=== PATIENT | male | born 1970 | race Caucasian/White ===

== ENCOUNTER 2023-12-18 22:36 | Inpatient (IN) | payer OTHER, SELFPAY ==
[2023-12-18] VITALS (11 sets, daily range): BP systolic 161–213; BP diastolic 105–124; PULSE 134–156; RESP 16–35; TEMP 36.8; O2SAT 96–98; BMI 32.6
--- NOTE | 2023-12-18 22:39 | ECG_ITS ---
[facility] Test Date: 2023-12-18 Pat Name: Mika Salas Department: Room: Gender: Male Regulatory Internship: : 1970 Requested By: Inge Ghosh Order Number: [id number] Sachi MD: Mansi Alston M.D. Measurements Intervals [place] Rate: 152 P: 0 DC: 0 QRS: 64 QRSD: 79 T: -34 QT: 267 QTc: 425 Interpretive Statements ATRIAL FLUTTER/TACHYCARDIA WITH RAPID VENTRICULAR RESPONSE NONSPECIFIC ST & T-WAVE ABNORMALITY CRITICAL TEST RESULT No previous ECG available for comparison Electronically Signed On 12-19-2023 23:29:26 CDT by Mansi Alston M.D. [id number]
--- NOTE | 2023-12-18 22:43 | XRR_ITS ---
PROCEDURE INFORMATION: Exam: XR Chest Exam date and time: 12/18/2023 10:55 PM Age: 53 years old Clinical indication: Patient HX: Chest pain; New onset afib/rvr TECHNIQUE: Imaging protocol: Radiologic exam of the chest. Views: 1 view. COMPARISON: No relevant prior studies available. FINDINGS: Lungs: Unremarkable. No consolidation. Pleural spaces: Unremarkable. No pleural effusion. No pneumothorax. Heart/Mediastinum: Cardiomegaly. Bones/joints: Unremarkable. XR/XR chest 1V portable [id number] IMPRESSION: Cardiomegaly, negative for infiltrates
--- NOTE | 2023-12-18 22:53 | ED_ITS ---
HPI - Arrhythmia/Palpitations 2 General: Chief Complaint: Arrhythmia/Palpitations Stated Complaint: CP, Rapid heart Beat Time Seen by Provider: 12/18/23 22:54 History of Present Illness: 53-year-old male patient comes in today for complaints of rapid heart rate starting about 930 this evening. Patient was said he was just standing there and started feeling his heart not away with itself. Patient came in to the ER then when it did not slow down. Patient reported some mild chest pressure. Patient denies any chronic medical problems. Patient does drink alcohol and chews tobacco. Patient's surgical history includes repair of a fractured right leg and repair of a fractured right hand. Related Data Allergies Allergy/AdvReac Type Severity Reaction Status Date / Time No Known Allergies Allergy Verified 12/18/23 22:47 Review of Systems 2 General: Reports: 10 or more systems reviewed and unremarkable except in HPI and below Card: Reports: palpitations Physical Exam 2 Const: COMMON NORMALS: alert HENMT: COMMON NORMALS: normocephalic HEAD & SCALP: normocephalic THROAT: posterior oropharynx normal Neck/C-Spine: COMMON NORMALS: full ROM Chest: COMMONS NORMALS: normal inspection of the chest Resp: COMMON NORMALS: normal respiratory effort and clear to auscultation bilaterally AUSCULTATION: clear to auscultation bilaterally Cardio: COMMON NORMALS: regular rhythm RATE: tachycardic RHYTHM: regular rhythm GI: COMMON NORMALS: Soft to palpation and non-tender PALPATION: Yes Soft to palpation Back/Pelvis: COMMON NORMALS: thoracic and lumbar spine normal to inspection Extremity: COMMON NORMALS: normal to inspection Neuro: SENSORIUM/ORIENTATION: Yes alert Skin: COMMON NORMALS: turgor normal GENERAL SKIN EXAM: turgor normal Course 2 Vital Signs: Vital signs: Vital Signs Temperature 98.3 F 12/18/23 22:44 Pulse Rate 152 H 12/18/23 23:02 Respiratory Rate 22 H 12/18/23 23:02 Blood Pressure 170/114 12/18/23 23:02 Pulse Oximetry 98 12/18/23 23:02 MDM - Arrhythmia/Palpitations Medical Decision Making 53-year-old male patient comes in today with onset of palpitations and rapid heart rate about 930 this evening. Patient reported no improvement of symptoms and prompted him to come to the ER. Patient reported some mild chest discomfort. Differential diagnosis includes ACS, atrial fibrillation with RVR, dehydration, electrolyte imbalance, CHF. Initial EKG noted atrial flutter/tachycardia with rapid ventricular response at 152 bpm. 2257, reviewed EKG with Dr. Ghosh who initiated a Cardizem bolus 20 mg followed by drip. 2338, no response from initial dosing, repeat cardizem 20mg, D-Dimer elevated CTA of chest ordered. 0030, CTA of the chest noted no pulmonary embolism but does note cirrhosis of the liver and enlarged spleen. Chest x-ray showed cardiomegaly with negative for infiltrates. Discussed patient with Dr. Livingston who accepted patient graciously for admission for further management of atrial flutter with rapid response. Lab Data 12/18/23 22:58 12/18/23 22:58 Radiology Impressions Chest X-Ray 12/18/23 22:43 IMPRESSION: Cardiomegaly, negative for infiltrates Chest CTA 12/18/23 23:38 IMPRESSION: 1. Negative for pulmonary embolus. 2. Cardiomegaly. 3. Coronary artery atherosclerotic calcifications. 4. Spleen enlarged to 15 cm. 5. Hepatic steatosis. 6. Cirrhotic liver. Laboratory Results WBC 4.64 10^3/uL (3.29-11.43) 12/18/23 22:58 RBC 5.32 10^6/uL (3.85-5.65) 12/18/23 22:58 Hgb 16.60 g/dL (11.27-16.99) 12/18/23 22:58 Hct 47.5 % (37-53) 12/18/23 22:58 MCV 89.3 fl (82-101) 12/18/23 22:58 MCH 31.2 pg (27-33) 12/18/23 22:58 MCHC 34.9 g/dL (30-55) 12/18/23 22:58 RDW 13.1 % (12.1-15.1) 12/18/23 22:58 Plt Count 151 10^3/cmm (157-399) L 12/18/23 22:58 MPV 9.2 fL (7.4-10.4) 12/18/23 22:58 Neut % (Auto) 42.7 % 12/18/23 22:58 Lymph % (Auto) 43.8 % 12/18/23 22:58 [place] % (Auto) 11.0 % 12/18/23 22:58 Eos % (Auto) 1.7 % 12/18/23 22:58 Baso % (Auto) 0.6 % 12/18/23 22:58 Neut # (Auto) 1.98 10^3/uL (1.8-7.7) 12/18/23 22:58 Lymph # (Auto) 2.0 10^3/uL (0.8-4.8) 12/18/23 22:58 [place] # (Auto) 0.5 10^3/uL (0.2-0.9) 12/18/23 22:58 Eos # (Auto) 0.1 10^3/uL (0.0-0.8) 12/18/23 22:58 Baso # (Auto) 0.0 10^3/uL (0.0-0.1) 12/18/23 22:58 Nucleated RBC % (auto) 0 % 12/18/23 22:58 Nucleated RBCs # 0.0 /100WBC 12/18/23 22:58 PT 14.00 SECONDS (12.1-14.9) 12/18/23 22:58 INR 1.05 (0.8-1.2) 12/18/23 22:58 APTT 36.0 SECONDS (23.9-36.7) 12/18/23 22:58 D-Dimer 14.86 ug/mLFEU (0-0.59) H 12/18/23 22:58 Sodium 137 mmol/L (136-145) 12/18/23 22:58 Potassium 4.0 mmol/L (3.5-5.1) 12/18/23 22:58 Chloride 101 mmol/L (98-107) 12/18/23 22:58 Carbon Dioxide 25 mmol/L (22-29) 12/18/23 22:58 Anion Gap 15.0 (5-19) 12/18/23 22:58 BUN 10 mg/dL (6-20) 12/18/23 22:58 Creatinine 0.9 mg/dL (0.7-1.2) 12/18/23 22:58 GFR Calculation 88.3 mL/min (90-130) L 12/18/23 22:58 Glucose 118 mg/dL (65-115) H 12/18/23 22:58 Calculated Osmolality 284 mOsm/kg (285-295) L 12/18/23 22:58 Calcium 8.6 mg/dL (8.5-10.5) 12/18/23 22:58 Magnesium 1.9 mg/dL (1.7-2.3) 12/18/23 22:58 Total Bilirubin 1.0 mg/dL (0.15-1.2) 12/18/23 22:58 AST 98 U/L (0-40) H 12/18/23 22:58 ALT 133 U/L (0-41) H 12/18/23 22:58 Alkaline Phosphatase 159 U/L (40-130) H 12/18/23 22:58 Troponin T Baseline 14 ng/L (0-15) 12/18/23 22:58 NT-Pro-B Natriuret Pep 116 pg/mL (0-125) 12/18/23 22:58 Total Protein 7.9 g/dL (6.6-8.7) 12/18/23 22:58 Albumin 3.9 g/dL (3.5-5.2) 12/18/23 22:58 Globulin 4.0 g/dL (1.3-4.6) 12/18/23 22:58 Lipase 27 U/L (13-60) 12/18/23 22:58 All radiology interpretation(s) finalized by discharge EKG Data EKG 1: I personally reviewed and interpreted this EKG as follows: EKG interpretation date: 12/18/23 EKG interpretation time: 22:57 Prior EKG tracings: not available for review Interpretation: EKG shows a atrial tachycardia with rapid ventricular response at [address] elevation or ectopy is seen on rhythm. No prior exam was available for comparison. Computer generated interpretation: Atrial flutter/tachycardia with rapid ventricular response. Nonspecific ST and T wave abnormality. Critical test result. Unconfirmed report. Other EKG comments: Chest X-Ray 12/18/23 22:43 IMPRESSION: Cardiomegaly, negative for infiltrates Chest CTA 12/18/23 23:38 IMPRESSION: 1. Negative for pulmonary embolus. 2. Cardiomegaly. 3. Coronary artery atherosclerotic calcifications. 4. Spleen enlarged to 15 cm. 5. Hepatic steatosis. 6. Cirrhotic liver. Discharge Plan Discharge Condition: Stable Referrals: Jevon Hodges MD [Family Provider] - Coding Level of Care Code ED Custom Protection Officer for Nurys Pittman
[2023-12-18] MEDS: dilTIAZem 5 mg/mL SDV 5 mL 20 MG IVP ×2 (23:04→23:42)
[2023-12-18] MEDS: aspirin 81 mg Chew Tablet 162 MG PO (23:04)
[2023-12-18 23:12] LABS: Basophils % 0.6 %; Eosinophils # 0.1 10^3/uL (0.0-0.8); Eosinophils % 1.7 %; Hematocrit 47.5 % (37-53); Lymphocytes % 43.8 %; Mean Corpuscular HGB Conc 34.9 g/dL (30-55); Mean Corpuscular Hemoglobin 31.2 pg (27-33); Mean Corpuscular Volume 89.3 fl (82-101); Mean Platelet Volume 9.2 fL (7.4-10.4); Monocytes # 0.5 10^3/uL (0.2-0.9); Neutrophils # 1.98 10^3/uL (1.8-7.7); Neutrophils % 42.7 %; Nucleated Red Blood Cells % 0 %; Platelet Count 151 10^3/cmm (157-399); Red Blood Count 5.32 10^6/uL (3.85-5.65); Red Cell Distribution Width 13.1 % (12.1-15.1); White Blood Count 4.64 10^3/uL (3.29-11.43)
[2023-12-18] MEDS: dilTIAZem 100 MG in sodium chloride 0.9% (add-van) 100 ML IV (23:13)
[2023-12-18 23:28] LABS: Troponin(5th) Baseline 14 ng/L (0-15)
[2023-12-18 23:30] LABS: D Dimer 14.86 ug/mLFEU (0-0.59)
[2023-12-18 23:37] LABS: Alanine Aminotransferase 133 U/L (0-41); Albumin Level 3.9 g/dL (3.5-5.2); Alkaline Phosphatase 159 U/L (40-130); Aspartate Amino Transferase 98 U/L (0-40); Blood Urea Nitrogen 10 mg/dL (6-20); Calcium 8.6 mg/dL (8.5-10.5); Carbon Dioxide 25 mmol/L (22-29); Chloride 101 mmol/L (98-107); Creatinine Clr Calc Pharmacy 107.4729; Glomerular Filtration Rate 88.3 mL/min (90-130); Glucose 118 mg/dL (65-115); Lipase 27 U/L (13-60); NT Pro B Type Natriuretic Pept 116 pg/mL (0-125); Osmolality Calculated 284 mOsm/kg (285-295); Sodium 137 mmol/L (136-145); Total Protein 7.9 g/dL (6.6-8.7)
--- NOTE | 2023-12-18 23:38 | CTR_ITS ---
PROCEDURE INFORMATION: Exam: CTA Chest With Contrast Exam date and time: 12/19/2023 12:00 AM Age: 53 years old Clinical indication: Abnormal findings; Abnormal diagnostic tests; Elevated d-dimer; Other: Palpitations/afib; Patient HX: C/O palpitations. Afib rvr on monitor. D dimer of 14.86. ; Additional info: Elevated d-dimer; New onset a-fib/rvr TECHNIQUE: Imaging protocol: Computed tomographic angiography of the chest with contrast. Exam focused on the arteries. 3D rendering (Not supervised by radiologist): MIP and/or 3D reconstructed images were created by the technologist. Radiation optimization: All CT scans at this facility use at least one of these dose optimization techniques: automated exposure control; mA and/or kV adjustment per patient size (includes targeted exams where dose is matched to clinical indication); or iterative reconstruction. Contrast material: OMNI 350; Contrast volume: 57 ml; Contrast route: INTRAVENOUS (IV); COMPARISON: CR (CHEST, ) 12/18/2023 10:55 PM RADIATION DOSE METRICS: Total DLP (mGy-cm): 440 FINDINGS: Pulmonary arteries: Normal. No pulmonary emboli. Aorta: Unremarkable. No aortic aneurysm. No aortic dissection. Lungs: Unremarkable. No consolidation. No masses. Pleural spaces: Unremarkable. No pneumothorax. No pleural effusion. Heart: Cardiomegaly. Coronary arteries: Coronary artery atherosclerotic calcifications. Lymph nodes: Unremarkable. No enlarged lymph nodes. Liver: Hepatic steatosis. Cirrhotic liver. Spleen: Spleen enlarged to 15 cm. Bones/joints: Unremarkable. No acute fracture. Soft tissues: Unremarkable. CT/CT angio chest PE protcl [id number] IMPRESSION: 1. Negative for pulmonary embolus. 2. Cardiomegaly. 3. Coronary artery atherosclerotic calcifications. 4. Spleen enlarged to 15 cm. 5. Hepatic steatosis. 6. Cirrhotic liver.
[2023-12-18 23:51] LABS: INR 1.05 (0.8-1.2)
[2023-12-19] VITALS (38 sets, daily range): BP systolic 118–164; BP diastolic 74–108; PULSE 55–160; RESP 17–34; TEMP 36.6–36.8; O2SAT 90–99
[2023-12-19] MEDS: iohexol 350 mg/mL 500 mL Btl (per mL) IV (00:02)
[2023-12-19 00:10] LABS: Magnesium 1.9 mg/dL (1.7-2.3)
[2023-12-19 00:39] LABS: Alcohol Level < 10 mg/dL (0-10)
[2023-12-19 01:32] LABS: Troponin 5 2HR 11.33 ng/L (0-15)
[2023-12-19 01:36] LABS: Troponin 5 2HR Delta -2.67 ABS# (0-10)
--- NOTE | 2023-12-19 02:08 | P.HP_ITS ---
Providers/Chief Complaint 2 Admitting Physician: Everett Livingston Chief Complaint: CP, Rapid heart Beat History of Present Illness Pleasant 53-year-old gentleman started experiencing palpitations in the evening on 12/17 around 9 PM, finding that his heart rate was rapid. He came to the ER for assessment. He denies any lightheadedness, chest pain pressure or trouble breathing. He has not been ill recently. He states that he threw out his back last week for which he took some pain medications. Denies other new medicines. He denies any past medical history. No history of thyroid issues. He consumes about 15 bottles of beer in a week. He does not have a PCP. In ER his heart rate is found to be in 150s. Baseline troponin is normal. Potassium 4. Magnesium 1.9. He is hypertensive, blood pressure as high as 213/124 on presentation. With Cardizem drip down as low as 118/83. Currently 158/103. Review of Systems 2 Const: Denies: fever(s), chills, body aches or malaise ENMT: Denies: throat pain Card: Denies: chest pain, edema, pre-syncope or dyspnea on exertion Resp: Denies: dyspnea, productive cough, change in phlegm color or hemoptysis GI: Denies: abdominal pain, nausea, vomiting, diarrhea, constipation, hematochezia or melena : Denies: flank pain, difficulty urinating, urinary frequency or hematuria Musc: Denies: back pain, joint swelling or joint redness Neuro: Denies: headache(s), dizziness or confusion Medications/Allergies Allergies Allergy/AdvReac Type Severity Reaction Status Date / Time contact metal agent Allergy Intermediate ALGY-Redness Unverified 12/19/23 02:14 of Skin PFSH Acute 2 PFSH: Social History (Updated 12/19/23 @ 02:13 by Everett Livingston MD) Smoking and tobacco/nicotine status: never used tobacco/nicotine Alcohol intake: current Alcohol type: beer Alcohol use comment: 15/wk Lives independently: Yes Household members: spouse Marital status: Vitals/I&O/Wt Last Vital Signs Temp 98.3 F 12/18/23 22:44 Pulse 159 H 12/19/23 01:50 Resp 31 H 09/23/24 01:50 BP 158/103 12/19/23 01:50 Pulse Ox 97 12/19/23 01:50 12/18/23 12/18/23 12/19/23 14:59 22:59 06:59 Intake Total 7.583 / 7.583 Balance 7.583 / 7.583 Weight last 48 hrs Weight 97.522 kg Physical Exam 2 Const: COMMON NORMALS: patient oriented x3 and alert GENERAL APPEARANCE: c ooperative ORIENTATION/CONSCIOUSNESS: Yes awake HENMT: COMMON NORMALS: oropharynx normal Neck/C-Spine: COMMON NORMALS: no JVD Resp: COMMON NORMALS: normal respiratory effort and clear to auscultation bilaterally AUSCULTATION: clear to auscultation bilaterally Cardio: COMMON NORMALS: no JVD, regular rhythm, S1 normal heart sound present, S2 normal heart sound present and No murmurs present (Cardio) RHYTHM: regular rhythm HEART SOUNDS: S1 normal heart sound present and S2 normal heart sound present GI: COMMON NORMALS: Normal to inspection, nondistended, normoactive bowel sounds present, Soft to palpation and non-tender PALPATION: Yes Soft to palpation Extremity: COMMON NORMALS: no joint enlargement and no pedal edema Neuro: COMMON NORMALS: patient oriented x3 and moves all extremities S ENSORIUM/ORIENTATION: Yes alert Skin: COMMON NORMALS: no rashes or lesions noted GENERAL SKIN EXAM: no rashes or lesions noted Data 12/18/23 22:58 12/18/23 22:58 A&P Assessment and plan (1) Paroxysmal atrial fibrillation with RVR: Reviewed vitals, CBC, coagulation studies, D-dimer, CMP, magnesium, troponin, NT proBNP, lipase, EtOH level, EKG, chest x-ray, CTA ER provider note, discussed with ER provider. Heart rate remains in the 50s, has been started on Cardizem drip, blood pressure extremely elevated on presentation, as high as 213/124, currently 158/103. No response on heart rate to Cardizem drip. Reviewed EKG, on my interpretation atrial flutter, noted T wave inversion in 2, 3 and aVF will give 2.5 mg IV slow push of metoprolol, discussed with him and nursing staff. Discussed with him also consideration of digoxin. Monitor on telemetry with tachycardia, risk of bradycardia, other arrhythmia. Complete troponin EKG series. Check TSH. Obtain echocardiogram once heart rates improve. Can do further cardiac risk stratification/stress testing depending on findings. With hypertension [id number] score of 1, would benefit from anticoagulation for stroke risk reduction. For now discussed with him starting Lovenox, bleeding risk. Signs to seek medical attention. Plan Incidentally noted cirrhotic appearance of liver: On CT scan. Otherwise on review of CBC platelets are normal, on review of CMP sodium is normal, there is transaminitis and alk phos elevation. There is fatty liver infiltration. Possibly alcohol related versus nonalcoholic or combine steatohepatitis. Does not appear to be in cirrhosis yet, possibly fibrosis, but he is at risk of progression to cirrhosis. Will check hepatitis panel. Encouraged complete abstinence from alcohol due to combined risk on top of nonalcoholic steatohepatitis, please revisit with him. Will benefit from lifestyle modification. Avoid NSAIDs. Flaky/crusted lesion of dorsal right hallux: Nummular eczema versus possibly psoriatic lesion or other etiology. Needs to follow-up with PCP, dermatology. Reports some history of allergy possibly contact allergy to metals and dust, although current lesion does not appear like contact dermatitis. Does not have a PCP: Case management consultation, needs to establish care. Attestations 2 Medical Necessity Statement*: Admission of over 2 midnights anticipated for assessment and management of paroxysmal atrial fibrillation heart rate in the low 50s unresponsive to Cardizem infusion so far, uncontrolled hypertension, and gentleman with undiagnosed liver disease. and High MDM includes amount and/or complexity of data reviewed/ordered [ previous or external records, resulted lab(s)/test(s), ordered lab(s)/test(s), independent test interpretation and other healthcare professional discussion] and described risk of complication, morbidity or mortality of management as documented Diagnoses Paroxysmal atrial fibrillation with RVR I48.0
--- NOTE | 2023-12-19 02:21 | ECG_ITS ---
[facility] Test Date: 2023-12-19 Pat Name: Mika Salas Department: Room: 101 Gender: Male Front Maker: : 1970 Requested By: Brandon Chua Order Number: [id number] Karimi MD: Magan Edgar M.D. Measurements Intervals [place] Rate: 158 P: 0 [place]: 0 QRS: 30 QRSD: 92 T: -41 QT: 263 QTc: 427 Interpretive Statements ATRIAL FLUTTER WITH RAPID VENTRICULAR RESPONSE Electronically Signed On 12-20-2023 16:58:09 CDT by Magan Edgar M.D. [id number]
[2023-12-19] MEDS: enoxaparin 100 mg/mL Syringe SUBCUT (02:46)
[2023-12-19] MEDS: metoprolol tartrate 1 mg/1 mL SDV 5 mL 2.5 MG IVP (02:46)
[2023-12-19 03:10] LABS: Thyroid Stimulating Hormone 2.25 uIU/mL (0.27-4.20)
[2023-12-19 03:27] LABS: Hepatitis A Antibody IgM Non-Reactive (Nonreactive); Hepatitis B Core IgM Non-Reactive (Nonreactive); Hepatitis B Surface Antigen Non-Reactive (Nonreactive); Hepatitis C Virus Antibody Non-Reactive (Nonreactive)
--- NOTE | 2023-12-19 03:29 | PC.NURSE ---
Spoke with regarding patients HR still in 150s despite IV Cardizem running at 15mg/hr for over 1 hour and IV metoprolol2.5mg IVP 30minutes ago. ordered one time dose metoprolol IVP 5mg.
[2023-12-19] MEDS: metoprolol tartrate 1 mg/1 mL SDV 5 mL 5 MG IVP (04:06)
--- NOTE | 2023-12-19 04:52 | ECG_ITS ---
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 Measurements Intervals [place] Rate: 98 P: 0 [place]: 0 QRS: 30 QRSD: 85 T: 34 QT: 352 QTc: 450 Interpretive Statements ATRIAL FLUTTER Compared to ECG 12/19/2023 02:21:25 ST (T wave) deviation now present T-wave abnormality no longer present Electronically Signed On 12-20-2023 16:57:51 CDT by Magan Edgar M.D. [id number]
[2023-12-19 05:31] LABS: Troponin 5 6HR 12.81 ng/L (0-15)
[2023-12-19 05:32] LABS: Troponin 5 6HR Delta -1.19 ng/L (0-12)
[2023-12-19] MEDS: dilTIAZem 100 MG in sodium chloride 0.9% (add-van) 100 ML 15 MG IV (06:15)
[2023-12-19] MEDS: digoxin 250 mcg/ml INJ 2 mL IVP (06:39)
--- NOTE | 2023-12-19 07:10 | PC.NURSE ---
Messaged regarding patients tachycardia, still on cardizem gtt. ordered one time dose of IVP digoxin 250mcg.
--- NOTE | 2023-12-19 09:36 | USCV_ITS ---
Mika Salas Age: 53 Gender: M : 1970 Exam Date: 12/19/2023 14:14 Ordering Phys: Brett Quezada MD Technologist: [place] [facility] [place] sob cp BP: 130 / 86 HR: 61 Rhythm: Sinus Technical Quality: Adequate MEASUREMENTS (Male / Female) Normal Values 2D ECHO LV Diastolic Diameter PLAX 4.0 cm 4.2 - 5.9 / 3.9 - 5.3 cm IVS Diastolic Thickness 1.0 cm 0.6 - 1.0 / 0.6 - 0.9 cm IVS Systolic Thickness 1.7 cm LVPW Diastolic Thickness 1.2 cm 0.6 - 1.0 / 0.6 - 0.9 cm LVPW Systolic Thickness 1.7 cm LVOT Diameter 2.0 cm LV Ejection Fraction 2D Teich 60.2 % LV Ejection Fraction MOD 4C 51.5 % LV Ejection Fraction MOD 2C 57.6 % LV Ejection Fraction 2C AL 58.0 % LA Diameter 3.6 cm RA Systolic Volume 4C AL 29.7 ml RA Systolic Volume 4C MOD 29.2 ml Aorta at Sinotubular Diameter 2.8 cm M-MODE LA Ao Ratio MM 1.1 AV Cusp Separation MM 2.5 cm DOPPLER AV Peak Velocity 148.0 cm/s LVOT Peak Velocity 122.0 cm/s AV Area Cont Eq vti 2.7 cm squared AV Area Cont Eq pk 2.6 cm squared MV Peak Velocity 106.0 cm/s MV Area PHT 2.8 cm squared Mitral E to A Ratio 1.3 TV Peak Velocity 218.0 cm/s TR Peak Velocity 247.0 cm/s TR Peak Gradient 24.4 mmHg TV Peak E Velocity 137.0 cm/s Right Atrial Pressure 3.0 mmHg Pulmonary Artery Systolic Pressu 27.4 mmHg PV Peak Velocity 101.0 cm/s FINDINGS Left Ventricle Left ventricle is normal in size. LV systolic function is normal with EF of 55 to 60%. No regional wall motion abnormalities are seen. Right Ventricle Normal in size and function Right Atrium Normal in size Left Atrium Normal in size Mitral Valve Moderate mitral annular calcification. Trace mitral regurgitation. Aortic Valve Grossly normal. No significant stenosis or regurgitation. Tricuspid Valve Insufficient TR jet to calculate RVSP Pulmonic Valve Not well visualized Pericardium Normal Aorta Normal in size IVC Appears to be normal CONCLUSIONS LV systolic function is normal with EF of 55-60% Trace mitral regurgitation No comparison studies are available. Magan Edgar MD (Electronically Signed) Final Date: 20 December 2023 11:29 S
[2023-12-19] MEDS: dilTIAZem ER (24HR) 240 mg Capsule PO (10:16)
[2023-12-19] MEDS: metoprolol tartrate 25 mg Tablet PO (12:10)
--- NOTE | 2023-12-19 13:19 | PM.MISC ---
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 Met with patient and spouse bedside. This is a new diagnosis for him. Denies prior arrhythmias. Denies family history of arrhythmias. He remains in atrial fibrillation with RVR despite being on 10 of Cardizem drip. He is eager to get out of the hospital. Discussed transitioning to oral Cardizem. We briefly discussed blood thinner and echocardiogram. Discussed plan of care.
--- NOTE | 2023-12-19 13:45 | PC.NURSE ---
Patient converted to NSR/sb. Informed Dr Quezada. Patient placed on portable telemetry and was told to ambulate. Patient ambulated in partida with heart rate maintaining low to mid 60s with consistent SR observed. [facility] in presently performing cardiac ECHO. Possible plan for discharge late this evening.
--- NOTE | 2023-12-19 14:53 | PM.DCS ---
Discharge Providers Date of Admission: 12/19/23 00:34 Date of Discharge: December 19, 2023 Attending Provider at Admission: Everett Livingston Attending Provider at Discharge: Brett Quezada MD Diagnoses at Discharge Discharge Diagnosis (1) Paroxysmal atrial fibrillation with RVR: Status: Acute Reason for Visit Reason for Visit: CP, Rapid heart Beat Hospital Course Hospital Course Mika Salas is a 53-year-old male who presented emergency department with palpitations, found to have newly diagnosed atrial fibrillation with rapid ventricular rate. He was treated with a Cardizem drip and converted to oral Cardizem. He remained in atrial fibrillation despite calcium channel fátima treatment. He was started on low-dose beta-fátima with metoprolol and converted to normal sinus rhythm. His [id number] score was found to be 1 due to suspected hypertension. He was therefore not started on systemic anticoagulation. Patient will be treated with aspirin 81 mg enteric-coated daily. He educated on risk factors regarding stroke. He was also educated regarding alcohol consumption lowering the threshold for atrial fibrillation. He plans on reducing his alcohol intake. He was eager to discharge to home. His symptomatology resolved after returning to sinus rhythm. Patient discharged home in stable condition. He will follow-up with a primary provider within 1 week. Physical Exam Narrative: General: Patient is awake and alert. Head: Normocephalic. Atraumatic. EOM intact. Neck: No JVD. Cardiovascular: RRR. No gallops. No murmurs. No peripheral edema. Lungs: Clear to auscultation, no use of accessory muscles, no crackles or wheezes. Skin: No jaundice. No rashes. Abdomen: Normal bowel sounds, abdomen soft and nontender. Genito Urinary: Genital exam not performed since complaints not related. Rectal: Rectal exam not performed since no symptoms indicated blood loss. Extremities: No cyanosis or clubbing. Musculoskeletal: 5/5 strength, normal range of motion, no swollen or erythematous joints. Neurological: Moves all 4 extremities. No myoclonus. Discharge Data Studies Completed and Pending Completed Studies During Hospitalization Category Date Time Status CTA chest [CT angio chest PE protcl [id number]] Stat Cat Scan 12/18/23 23:38 Completed XR chest 1V portable [id number] Stat Exams 12/18/23 22:43 Completed Pending at discharge Category Date Time Status Complete Blood Count w/Auto AM LABS Lab 12/20/23 04:00 Ordered Complete Blood Count w/Auto AM LABS Lab 12/21/23 04:00 Ordered Complete Blood Count w/Auto AM LABS Lab 12/22/23 04:00 Ordered Comprehensive Metabolic Panel AM LABS Lab 12/20/23 04:00 Ordered Comprehensive Metabolic Panel AM LABS Lab 12/21/23 04:00 Ordered Comprehensive Metabolic Panel AM LABS Lab 12/22/23 04:00 Ordered Magnesium AM LABS Lab 12/20/23 04:00 Ordered CV. echo complete* [id number] Routine Ultrasound 12/19/23 09:36 Ordered Radiology Impressions Chest X-Ray 12/18/23 22:43 IMPRESSION: Cardiomegaly, negative for infiltrates Chest CTA 12/18/23 23:38 IMPRESSION: 1. Negative for pulmonary embolus. 2. Cardiomegaly. 3. Coronary artery atherosclerotic calcifications. 4. Spleen enlarged to 15 cm. 5. Hepatic steatosis. 6. Cirrhotic liver. Laboratory Results WBC 4.64 10^3/uL (3.29-11.43) 12/18/23 22:58 RBC 5.32 10^6/uL (3.85-5.65) 12/18/23 22:58 Hgb 16.60 g/dL (11.27-16.99) 12/18/23 22:58 Hct 47.5 % (37-53) 12/18/23 22:58 MCV 89.3 fl (82-101) 12/18/23 22:58 MCH 31.2 pg (27-33) 12/18/23 22:58 MCHC 34.9 g/dL (30-55) 12/18/23 22:58 RDW 13.1 % (12.1-15.1) 12/18/23 22:58 Plt Count 151 10^3/cmm (157-399) L 12/18/23 22:58 MPV 9.2 fL (7.4-10.4) 12/18/23 22:58 Neut % (Auto) 42.7 % 12/18/23 22:58 Lymph % (Auto) 43.8 % 12/18/23 22:58 Navarro % (Auto) 11.0 % 12/18/23 22:58 Eos % (Auto) 1.7 % 12/18/23 22:58 Baso % (Auto) 0.6 % 12/18/23 22:58 Neut # (Auto) 1.98 10^3/uL (1.8-7.7) 12/18/23 22:58 Lymph # (Auto) 2.0 10^3/uL (0.8-4.8) 12/18/23 22:58 Navarro # (Auto) 0.5 10^3/uL (0.2-0.9) 12/18/23 22:58 Eos # (Auto) 0.1 10^3/uL (0.0-0.8) 12/18/23 22:58 Baso # (Auto) 0.0 10^3/uL (0.0-0.1) 12/18/23 22:58 Nucleated RBC % (auto) 0 % 12/18/23 22:58 Nucleated RBCs # 0.0 /100WBC 12/18/23 22:58 PT 14.00 SECONDS (12.1-14.9) 12/18/23 22:58 INR 1.05 (0.8-1.2) 12/18/23 22:58 APTT 36.0 SECONDS (23.9-36.7) 12/18/23 22:58 D-Dimer 14.86 ug/mLFEU (0-0.59) H 12/18/23 22:58 Sodium 137 mmol/L (136-145) 12/18/23 22:58 Potassium 4.0 mmol/L (3.5-5.1) 12/18/23 22:58 Chloride 101 mmol/L (98-107) 12/18/23 22:58 Carbon Dioxide 25 mmol/L (22-29) 12/18/23 22:58 Anion Gap 15.0 (5-19) 12/18/23 22:58 BUN 10 mg/dL (6-20) 12/18/23 22:58 Creatinine 0.9 mg/dL (0.7-1.2) 12/18/23 22:58 GFR Calculation 88.3 mL/min (90-130) L 12/18/23 22:58 Glucose 118 mg/dL (65-115) H 12/18/23 22:58 Calculated Osmolality 284 mOsm/kg (285-295) L 12/18/23 22:58 Calcium 8.6 mg/dL (8.5-10.5) 12/18/23 22:58 Magnesium 1.9 mg/dL (1.7-2.3) 12/18/23 22:58 Total Bilirubin 1.0 mg/dL (0.15-1.2) 12/18/23 22:58 AST 98 U/L (0-40) H 12/18/23 22:58 ALT 133 U/L (0-41) H 12/18/23 22:58 Alkaline Phosphatase 159 U/L (40-130) H 12/18/23 22:58 Troponin T Baseline 14 ng/L (0-15) 12/18/23 22:58 Troponin T 120 Minute 11.33 ng/L (0-15) 12/19/23 01:05 Delta Troponin T -2.67 ABS# (0-10) L 12/19/23 01:05 Troponin T Hi Sens 6Hr 12.81 ng/L (0-15) 12/19/23 04:51 Troponin T Hi Sens 6Hr Delta -1.19 ng/L (0-12) L 12/19/23 04:51 NT-Pro-B Natriuret Pep 116 pg/mL (0-125) 12/18/23 22:58 Total Protein 7.9 g/dL (6.6-8.7) 12/18/23 22:58 Albumin 3.9 g/dL (3.5-5.2) 12/18/23 22:58 Globulin 4.0 g/dL (1.3-4.6) 12/18/23 22:58 Lipase 27 U/L (13-60) 12/18/23 22:58 TSH 2.25 uIU/mL (0.27-4.20) 12/19/23 01:05 Ethyl Alcohol < 10 mg/dL (0-10) 12/18/23 22:58 Hepatitis A IgM Ab Non-reactive (Nonreactive) 12/18/23 22:58 Hep Bs Antigen Non-reactive (Nonreactive) 12/18/23 22:58 Hep B Core IgM Ab Non-reactive (Nonreactive) 12/18/23 22:58 Hepatitis C Antibody Non-reactive (Nonreactive) 12/18/23 22:58 Vitals Last Vital Signs Temp 98.3 F 12/19/23 12:04 Pulse 55 L 12/19/23 14:00 Resp 21 H 12/19/23 12:04 BP 127/83 12/19/23 12:04 Pulse Ox 97 12/19/23 12:04 O2 Del Method Room Air 12/19/23 07:18 Discharge Plan Discharge Patient Disposition: Home Condition: Stable Prescriptions: New diltiazem HCl 240 mg Capsule,Extended Release 24hr 240 mg PO DAILY 90 Days Qty: 90 0RF aspirin 81 mg capsule 81 mg PO DAILY Qty: 90 0RF metoprolol succinate 25 mg capsule,sprinkle,ER 24hr 25 mg PO DAILY Qty: 90 0RF Continued Pepcid AC 10 mg Tablet 10 mg PO DAILY Discharge Orders: Discharge Order (Routine); Ordered 12/19/23 Ordered By: Brett Quezada Referrals: Amanda Akers [Registered Nurse] - 12/23/23 10:20 am (Follow up at [facility] to see Amanda Akers NP on Tuesday12/23/23 at 1020. Please bring an updated Insurance card. ) Discharge Diet: Advance as tolerated, Usual diet and Cardiac Discharge Activity: Resume usual activity and Increase activity as tolerated Patient Instructions: Atrial Fibrillation, Metoprolol (By mouth), Diltiazem (By mouth), Aspirin (By mouth), Opioid Safety Activity Restrictions/Additional Instructions: 1. Take medications as prescribed. 2. Keep home blood pressure and heart rate log. 3. Consider obtaining a [employer]. 4. Establish with PCP. Bring BP and HR log with you to your appointments. 5. Return to ED for recurrent or worsening symptoms. Discharge Attestations Time Spent in Discharge Care*: greater than 30 min Quality Metrics Clinical Quality Measures [ No reported AMI, CVA or VTE this stay] Coding Level of Care Code Acute Code for Chg Fwd Diagnoses Paroxysmal atrial fibrillation with RVR I48.0
--- NOTE | 2023-12-19 15:50 | PC.NURSE ---
Patient discharged to home. Instruction provided regarding afib, new medications and follow up needs. Patient and spouse both asked and answered questions appropriately. Both verbalized complete understanding. Patient insisted on leaving ambulatory with spouse at side.
== END 2023-12-19 15:51 | disposition home or self-care (01) | DRG 310 ==
LOC: ER 22:54 → CSU 12-19 00:52
PROVIDERS: Admitting Provider Internal Medicine; Emergency Provider Nurse Practitioner Family; Visit Provider Internal Medicine
DX: I48.0 Paroxysmal atrial fibrillation (principal); I10 Essential (primary) hypertension; F10.10 Alcohol abuse, uncomplicated; K70.9 Alcoholic liver disease, unspecified; K76.0 Fatty (change of) liver, not elsewhere classified
CPT/HCPCS: 36415; 71045; 71275; 80053; 80074; 80307; 83690; 83735; 83880; 84443; 84484; 85025; 85378; 85610; 85730; 93005; 93306; 96365; 96366; 96372; 96375; 96376; 99285; J1160; J1650; J3490